=== PATIENT | male | born 1945 | race Caucasian/White ===

== ENCOUNTER 2016-12-03 08:00 | Outpatient (CLI) | payer BC ==
[~2016-12-03 08:00] MED LIST: PROSCAR 5MG5 MG PO
== END 2016-12-09 07:30 | disposition home or self-care (01) ==
LOC: COL.VAS 08:00
DX: I10 Essential (primary) hypertension (principal); N40.0 Benign prostatic hyperplasia without lower urinary tract symptoms; R97.20 Elevated prostate specific antigen [PSA]; D64.9 Anemia, unspecified; E87.6 Hypokalemia

== ENCOUNTER 2016-12-16 12:04 | Observation (INO) | payer BC ==
[2016-12-16] VITALS (7 sets, daily range): BP systolic 114–129; BP diastolic 56–76; PULSE 68–94; TEMP 97.6
[~2016-12-16] VITALS: Ht 190.5 cm; Wt 85.2 kg
[2016-12-16] MEDS ORDERED: PRINIVIL20 MG PO (12:23)
[2016-12-16] MEDS ORDERED: NORVASC 10MG10 MG PO (12:27)
[2016-12-16] MEDS ORDERED: COZAAR100 MG PO (12:28)
[2016-12-16] MEDS ORDERED: CIPRO 500MG TA500 MG PO (12:29)
[2016-12-16] MEDS ORDERED: K-TAB20 PO (12:29)
[2016-12-16] MEDS ORDERED: VITAMIN D32000 IU PO (12:30)
[2016-12-16] MEDS ORDERED: FOLTRATE PO (12:31)
[2016-12-17 02:17] VITALS: BP 100/52; PULSE 64; TEMP 98.3
[2016-12-17 04:55] VITALS: BP 107/61; PULSE 71; TEMP 99.4
[2016-12-17 07:17] LABS: MEAN CELL VOLUME 92 fl (80.0-100.0); MEAN CORPUSCULAR HGB CONC 33 g/dl (33.0-37.0); MEAN PLATELET VOLUME 10.6 fl (7.4-10.4); PLATELET COUNT 363 K/mm3 (130-400); RED BLOOD COUNT 3.51 M/mm3 (4.20-5.60); REDCELL DISTRIBUTION WIDTH-CV 14.2 % (11.5-14.5); WHITE BLOOD COUNT 9.9 K/mm3 (4.8-10.8)
[2016-12-17 07:31] LABS: HEMATOCRIT 32.3 % (42.0-52.0); HEMOGLOBIN 10.5 g/dl (13.5-18.0); MEAN CORPUSCULAR HEMOGLOBIN 30 pg (27.0-31.0)
[2016-12-17 09:33] VITALS: BP 114/61; PULSE 91; TEMP 98.3
[2016-12-17 14:09] VITALS: BP 103/58; PULSE 92; TEMP 97.8
[2016-12-17 18:14] VITALS: BP 128/66; PULSE 92; TEMP 98.7
[2016-12-17 22:21] VITALS: BP 104/68; PULSE 90; TEMP 98.7
[2016-12-18 06:56] VITALS: BP 103/45; PULSE 60; TEMP 98.1
[2016-12-18 09:21] VITALS: BP 115/66; PULSE 89
== END 2016-12-18 12:19 | disposition home or self-care (01) ==
LOC: SDCO 12:04 → JCC 20:18 → SDCO 12-17 14:30 → JCC 12-18 12:19
PROVIDERS: Urology
DX: N40.1 Benign prostatic hyperplasia with lower urinary tract symptoms (principal); N32.0 Bladder-neck obstruction; R33.9 Retention of urine, unspecified; I10 Essential (primary) hypertension; D64.9 Anemia, unspecified; M19.90 Unspecified osteoarthritis, unspecified site; E78.00 Pure hypercholesterolemia, unspecified
CPT/HCPCS: OP; C1769; G0378; J0690; J1100; J2270; J2405; J2704; J3010; J7120

== ENCOUNTER 2017-02-03 06:26 | Day surgery (SDC) | payer BC ==
[~2017-02-03] VITALS: Ht 190.5 cm; Wt 89.2 kg
[~2017-02-03 06:26] MED LIST changes: +CIPRO 500MG TA500 MG PO; +COZAAR100 MG PO; +FOLTRATE PO; +K-TAB20 PO; +NORVASC 10MG10 MG PO; +PRINIVIL20 MG PO; +VITAMIN D32000 IU PO
[2017-02-03 07:08] VITALS: BP 139/83; PULSE 81; TEMP 98.1
[2017-02-03 09:42] VITALS: BP 130/74; PULSE 62
[2017-02-03 09:57] VITALS: BP 116/69; PULSE 61
[2017-02-03 10:12] VITALS: BP 136/61; PULSE 55
[2017-02-03 10:27] VITALS: BP 134/81; PULSE 50
== END 2017-02-03 11:12 | disposition home or self-care (01) ==
LOC: SDCO 06:26
DX: M20.12 Hallux valgus (acquired), left foot (principal); M21.612 Bunion of left foot; I10 Essential (primary) hypertension; N13.30 Unspecified hydronephrosis; N40.0 Benign prostatic hyperplasia without lower urinary tract symptoms; I82.409 Acute embolism and thrombosis of unspecified deep veins of unspecified lower extremity
CPT/HCPCS: C1713; J0690; J2250; J2704; J3010